=== PATIENT | male | born 1975 | race Two or more races ===

== ENCOUNTER 2024-08-09 17:47 | Emergency (ER) | payer OTHER ==
[~2024-08-09] VITALS: Ht 170.2 cm; Wt 93.9 kg
[2024-08-09] MEDS ORDERED: LIDOCAINE 1%-EPI 1:100,000 20 ML VIAL ONE (20:21)
[2024-08-09] MEDS: LIDOCAINE 1%-EPI 1:100,000 50 ML VIAL IJ ONE (20:21)
[2024-08-09] MEDS ORDERED: KETO10TA2 PO (22:02)
[2024-08-09 22:27] VITALS: BP 136/80; TEMP 98.2; O2SAT 98
== END 2024-08-09 22:27 | disposition home or self-care (01) ==
LOC: ER 17:47
DX: S52.532A Colles' fracture of left radius, initial encounter for closed fracture (principal); W18.39XA Other fall on same level, initial encounter; Y93.89 Activity, other specified; Y92.89 Other specified places as the place of occurrence of the external cause; Y99.8 Other external cause status
CPT/HCPCS: 29125; 73100; 73110; 99283; J3490